=== PATIENT | male | born 1985 | race African-American/Black ===

== ENCOUNTER 2022-11-21 13:41 | Inpatient (IN) | payer OTHER ==
[2022-11-21 14:33] VITALS: BMI 25.4
[2022-11-21] MEDS ORDERED: IBUPROFEN 400 MG TABLET (FP) PO PRN (18:52)
[2022-11-21] MEDS ORDERED: NALOXONE HCL 0.4 MG/ML VIAL IM PRN (18:52)
[2022-11-21] MEDS ORDERED: IBUPROFEN 600 MG TABLET (FP) PO PRN (18:52)
[2022-11-21] MEDS ORDERED: NICOTINE POLACRILEX 2 MG GUM BUC PRN (18:52)
[2022-11-21] MEDS ORDERED: guaiFENesin 600 MG TABLET.ER (FP) PO PRN (18:52)
[2022-11-21] MEDS ORDERED: BISMUTH SUBSALICYLATE 524 MG/30 ML PO PRN (18:52)
[2022-11-21] MEDS ORDERED: ACETAMINOPHEN 325 MG TABLET (FP) PO PRN (18:52)
[2022-11-21] MEDS ORDERED: NALOXONE HCL (KLOXXADO) 8 MG SPRAY NS PRN (18:52)
[2022-11-21] MEDS ORDERED: POLYETHYLENE GLYCOL (HEALTHYLAX) 3350 17 GM PACKET PO PRN (18:52)
[2022-11-21] MEDS ORDERED: DICYCLOMINE HCL 10 MG CAPSULE PO PRN (18:52)
[2022-11-21] MEDS ORDERED: BENZOCAINE/MENTHOL (CHLORASEPTIC ) LOZENGE MM PRN (18:52)
[2022-11-21] MEDS ORDERED: ONDANSETRON *ODT* 4 MG TABLET SL PRN (18:52)
[2022-11-21] MEDS ORDERED: LOPERAMIDE HCL 2 MG CAPSULE PO PRN (18:52)
[2022-11-21] MEDS ORDERED: BENZONATATE 200 MG CAPSULE PO PRN (18:52)
[2022-11-21] MEDS ORDERED: MAGNESIUM HYDROX 2400MG/30ML ORAL SUSPENSION 30 ML CUP PO PRN (18:52)
[2022-11-21] MEDS ORDERED: cloNIDine HCL 0.1 MG TABLET PO PRN (18:56)
[2022-11-21] MEDS ORDERED: methaDONE HCL 10 MG TABLET (FOR DETOX USE ONLY) PO ONE (18:56)
[2022-11-21] MEDS ORDERED: methaDONE HCL 10 MG TABLET (FOR DETOX USE ONLY) ONE (19:47)
[2022-11-21] MEDS: THIAMINE HCL 100 MG TABLET (FP) PO SCH (22:41)
[2022-11-21] MEDS: MELATONIN 5 MG TABLETS PO SCH (22:41)
[2022-11-22] MEDS: hydrOXYzine PAMOATE 25 MG CAPSULE (FP) PO PRN ×2 (04:45→16:50)
[2022-11-22] MEDS: PRENATAL VITAMINS W/ FOLIC ACID TABLET (FP) PO SCH (10:12)
[2022-11-22] MEDS: NICOTINE 14 MG/24 HOURS TOPICAL PATCH TD SCH (10:12)
[2022-11-22 10:19] LABS: HEMATOCRIT 40.9 % (35.4-49); MCH 31.6 pg (25.7-33.7); MCHC 34.2 g/dl (32.0-35.9); MEAN CELL VOLUME 92.4 fl (80-96); MEAN PLT VOLUME 8.5 fl (7.5-11.1); PLATELET COUNT 251 10^3/uL (134-434); RBC 4.42 M/mm3 (4.00-5.60); RDW 13.9 % (11.9-15.9)
[2022-11-22 10:27] LABS: POTASSIUM 4.4 mmol/L (3.5-5.1)
[2022-11-22 10:30] LABS: ALBUMIN 3.5 g/dl (3.4-5.0); BLOOD UREA NITROGEN 14.8 mg/dL (7-18); CALCIUM 9.2 mg/dL (8.5-10.1)
[2022-11-22 10:32] LABS: CREATININE 1.1 mg/dL (0.55-1.3)
[2022-11-22 10:35] LABS: BILIRUBIN,TOTAL 0.1 mg/dL (0.2-1); TOT PROT 7.2 g/dl (6.4-8.2)
[2022-11-22] MEDS: METHOCARBAMOL 500 MG TABLET PO PRN (16:50)
[2022-11-22] MEDS: MELATONIN 5 MG TABLETS PO SCH (22:31)
[2022-11-22] MEDS: THIAMINE HCL 100 MG TABLET (FP) PO SCH (22:34)
[2022-11-23] MEDS: hydrOXYzine PAMOATE 25 MG CAPSULE (FP) PO PRN ×3 (02:31→20:06)
[2022-11-23] MEDS: METHOCARBAMOL 500 MG TABLET PO PRN ×2 (02:31→22:01)
[2022-11-23] MEDS: MAG HYDROX/AL HYDROX/SIMETH 30 ML UNIT-DOSE CUP PO PRN (04:26)
[2022-11-23] MEDS ORDERED: methaDONE HCL 10 MG TABLET (FOR DETOX USE ONLY) PO ONE (10:00)
[2022-11-23] MEDS: PRENATAL VITAMINS W/ FOLIC ACID TABLET (FP) PO SCH (10:29)
[2022-11-23] MEDS: NICOTINE 14 MG/24 HOURS TOPICAL PATCH TD SCH ×2 (10:33→10:36)
[2022-11-23] MEDS: diazePAM 5 MG TABLET PO PRN ×3 (13:24→22:01)
[2022-11-23] MEDS ORDERED: NICOTINE 21 MG/24 HOURS TOPICAL PATCH TD PRN (14:27)
[2022-11-23] MEDS: NICOTINE POLACRILEX 4 MG LOZENGE BC PRN ×2 (17:46→20:06)
[2022-11-23] MEDS: THIAMINE HCL 100 MG TABLET (FP) PO SCH (22:01)
[2022-11-23] MEDS: MELATONIN 5 MG TABLETS PO SCH (22:01)
[2022-11-24] MEDS: hydrOXYzine PAMOATE 25 MG CAPSULE (FP) PO PRN ×3 (02:50→22:20)
[2022-11-24] MEDS: MAG HYDROX/AL HYDROX/SIMETH 30 ML UNIT-DOSE CUP PO PRN (05:55)
[2022-11-24] MEDS: PRENATAL VITAMINS W/ FOLIC ACID TABLET (FP) PO SCH (10:07)
[2022-11-24] MEDS: METHOCARBAMOL 500 MG TABLET PO PRN (10:07)
[2022-11-24] MEDS: NICOTINE POLACRILEX 4 MG LOZENGE BC PRN ×3 (17:30→22:21)
[2022-11-24] MEDS: MELATONIN 5 MG TABLETS PO SCH (22:18)
[2022-11-24] MEDS: THIAMINE HCL 100 MG TABLET (FP) PO SCH (22:19)
[2022-11-25] MEDS: METHOCARBAMOL 500 MG TABLET PO PRN (05:43)
[2022-11-25] MEDS: hydrOXYzine PAMOATE 25 MG CAPSULE (FP) PO PRN ×2 (05:43→10:10)
[2022-11-25] MEDS: NICOTINE POLACRILEX 4 MG LOZENGE BC PRN ×2 (05:44→10:13)
[2022-11-25] MEDS ORDERED: methaDONE HCL 10 MG TABLET (FOR DETOX USE ONLY) PO ONE (10:00)
[2022-11-25] MEDS: PRENATAL VITAMINS W/ FOLIC ACID TABLET (FP) PO SCH (10:08)
[2022-11-25 13:31] VITALS: BP 117/72; PULSE 73; RESP 18; TEMP 97.6
== END 2022-11-25 13:06 | disposition home or self-care (01) | DRG 773 ==
LOC: YASAS 13:41 → Y6N 20:05
PROVIDERS: ADMIT Allergy & Immunology; ATTEND Allergy & Immunology
PROC: HZ2ZZZZ Detoxification Services for Substance Abuse Treatment (ICD-10-PCS; principal; 2022-11-21)
DX: F11.23 Opioid dependence with withdrawal (principal); F14.20 Cocaine dependence, uncomplicated; F12.20 Cannabis dependence, uncomplicated; F17.210 Nicotine dependence, cigarettes, uncomplicated; Z59.00 Homelessness unspecified
CPT/HCPCS: 36415; 80053; 85027; 86780; 87635; 87811; 93005; 93010; Q0162